=== PATIENT | female | born 1970 | race Caucasian/White ===

== ENCOUNTER → 2017-07-28 | Outpatient (CLI) | payer BC | END | disposition home or self-care (01) | LOC: C.PAPS 11:50 | PROVIDERS: ATTEND Obstetrics & Gynecology | DX: Z01.419 Encounter for gynecological examination (general) (routine) without abnormal findings (principal) ==

== ENCOUNTER → 2017-11-03 | Outpatient (CLI) | payer BC ==
[2017-11-03 14:00] LABS: THYROID STIMULATING HORMONE 2.68 uIu/ml (0.300-4.500)
== END | disposition home or self-care (01) ==
LOC: C.LABBC 11:41
PROVIDERS: ATTEND Physician Assistant
DX: N95.1 Menopausal and female climacteric states (principal)

== ENCOUNTER 2018-01-26 17:31 | Emergency (ER) | payer OTHER ==
[~2018-01-26] VITALS: Ht 157.5 cm; Wt 68.4 kg
[2018-01-26 17:44] VITALS: Ht 157.5 cm; Wt 68.4 kg
[2018-01-26] MEDS ORDERED: HYDROCODONE/ACETAMIN 5/325MG TAB PO STA (19:03)
[2018-01-26] MEDS ORDERED: LEVO50TA PO (19:14)
[2018-01-26] MEDS ORDERED: BONE SUPPLEMENT PO (19:17)
[2018-01-26] MEDS ORDERED: MULT-506 PO (19:17)
[2018-01-26] MEDS ORDERED: LACT1CAP6 PO (19:17)
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
[2018-01-26] MEDS ORDERED: HYDR-5688 PO (20:21)
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
[2018-01-26] MEDS ORDERED: NORCO 5/325MG HOME PACK PO ONE (20:30)
[2018-01-26 20:36] VITALS: BP 129/89; PULSE 66; TEMP 36.4; O2SAT 97
== END 2018-01-26 20:38 | disposition home or self-care (01) ==
LOC: C.EDB 17:32 → C.EDD 20:38
DX: S20.211A Contusion of right front wall of thorax, initial encounter (principal); S20.212A Contusion of left front wall of thorax, initial encounter; V43.52XA Car driver injured in collision with other type car in traffic accident, initial encounter; Y93.89 Activity, other specified; Y99.8 Other external cause status